=== PATIENT | male | born 1985 | race Caucasian/White ===

== ENCOUNTER 2025-02-04 07:29 | Day surgery (SDC) | payer OTHER ==
[~2025-02-04] VITALS: Ht 177.8 cm; Wt 81.5 kg
[~2025-02-04 07:29] MED LIST: BACLOFEN5 M1 PO; LINZESS145 MCG PO; NS 500 ML IV ONE
[2025-02-04] MEDS ORDERED: CeFAZolin Sodium 2,000 MG VIAL ONE (07:56)
[2025-02-04] MEDS ORDERED: FentaNYL Citrate 50 MCG/ML 2 ML Injection ONE (08:08)
[2025-02-04] MEDS ORDERED: Midazolam HCl 1MG / ML 2ML Vial ONE (08:08)
[2025-02-04] MEDS ORDERED: TRULANCE3 MG PO (08:11)
[2025-02-04] MEDS ORDERED: NORTRIPTYLINE H1012 PO (08:11)
[2025-02-04] MEDS ORDERED: BUPR75 PO (08:12)
[2025-02-04] MEDS ORDERED: ZYRTEC10 M2 PO (08:13)
[2025-02-04] MEDS ORDERED: FAMO20 PO (08:13)
[2025-02-04] MEDS ORDERED: ESCI10 PO (08:14)
[2025-02-04] MEDS ORDERED: NS 500 ML IV ONE (08:15)
--- NOTE | 2025-02-04 08:20 | NUR ---
02[facility]04/25 0820 [facility] BY DR RAMIREZ AT 0807 PER ORD.TCR PER ORD.TCR INJECTION WAS TOTAL OF 9 CC
[2025-02-04 08:47] VITALS: BP 123/72
== END 2025-02-04 09:05 | disposition home or self-care (01) ==
LOC: ORSCSDS 07:29
PROVIDERS: Orthopaedic Surgery
PROC: 01N54ZZ Release Median Nerve, Percutaneous Endoscopic Approach (ICD-10-PCS; principal; 2025-02-04 09:00)
DX: G56.03 Carpal tunnel syndrome, bilateral upper limbs (principal); K21.9 Gastro-esophageal reflux disease without esophagitis; F41.9 Anxiety disorder, unspecified; Z79.899 Other long term (current) drug therapy
CPT/HCPCS: J0690; J2250; J3010; J7040

== ENCOUNTER 2025-03-11 06:31 | Day surgery (SDC) | payer OTHER ==
[~2025-03-11] VITALS: Ht 177.8 cm; Wt 81.1 kg
[~2025-03-11 06:31] MED LIST changes: +BUPR75 PO; +ESCI10 PO; +FAMO20 PO; +Lidocaine 1%-Epineph 1:100000 20 ML MDV ONE; +NORTRIPTYLINE H1012 PO; +TRULANCE3 MG PO; +ZYRTEC10 M2 PO
[2025-03-11] MEDS ORDERED: CeFAZolin Sodium 2,000 MG VIAL ONE (07:18)
--- NOTE | 2025-03-11 07:53 | NUR ---
03/11/25 0752 LALA MONTOYA PT READY FOR OR, CALL LIGHT IN REACH. PT INJECTED BY DR. RAMIREZ WITH PRE OP INJECTION. 7ML TOTAL. PT TOLERATED WELL.
[2025-03-11 08:19] VITALS: BP 119/74
== END 2025-03-11 08:43 | disposition home or self-care (01) ==
LOC: ORSCSDS 06:31
PROVIDERS: Orthopaedic Surgery
PROC: 01N54ZZ Release Median Nerve, Percutaneous Endoscopic Approach (ICD-10-PCS; principal; 2025-03-11 08:00)
DX: G56.01 Carpal tunnel syndrome, right upper limb (principal); F41.9 Anxiety disorder, unspecified; K21.9 Gastro-esophageal reflux disease without esophagitis; Z79.899 Other long term (current) drug therapy
CPT/HCPCS: J0690; J2704; J7040; J7120